=== PATIENT | female | born 1930 | race Caucasian/White ===

== ENCOUNTER 2017-08-19 11:09 | Inpatient (IN) | payer OTHER ==
[~2017-08-19] VITALS: Ht 154.9 cm; Wt 47.1 kg
[2017-08-19 11:45] LABS: HEMATOCRIT 27.4 % (36.0-46.0); HEMOGLOBIN 8.9 G/DL (11.9-15.5); MCHC 32.5 G/DL (30.0-36.0); MCV 95.5 FL (83-99); PLATELET COUNT 222 K/uL (156-360); RBC DIS.WIDTH-CV 14.1 % (11.8-14.6); RBC DIS.WIDTH-SD 48.8 % (39-53); RED BLOOD COUNT 2.87 M/uL (3.80-5.20); WHITE BLOOD COUNT 9.6 K/uL (4.1-10.2)
[2017-08-19 11:54] LABS: INTER. NORMALIZED RATIO 1.1
[2017-08-19 11:57] LABS: CHLORIDE 99 mEq/L (99-109); POTASSIUM 3.7 mEq/L (3.7-5.4); SODIUM 148 mEq/L (136-147)
[2017-08-19 11:58] LABS: GLUCOSE 136 mg/dL (70-99)
[2017-08-19 12:02] LABS: CREATININE 1.2 mg/dL (0.6-1.3); GFR ESTIMATE (CALCULATED) 45 mL/min/
[2017-08-19 12:03] LABS: UREA NITROGEN (BUN) 55 mg/dL (9-23)
[2017-08-19 12:05] LABS: CREATINE KINASE 112 IU/L (1-294); TOTAL CK 112 IU/L (1-294)
[2017-08-19 12:06] LABS: TROP-I INTERPRETATION POSITIVE
[2017-08-19 12:09] LABS: TROPONIN-I 1.59 ng/mL (0.0-0.30)
[2017-08-19 12:10] LABS: CK-MB 4.2 ng/mL (0.0-4.9); CKMB RELATIVE INDEX 3.8 (0.0-3.9)
[2017-08-19 12:23] LABS: ABS NEUTROPHIL COUNT 9.4; ANISOCYTOSIS 1+; EOSINOPHIL ABS CT 0; LYMPHOCYTES 1.7 % (15.0-45.0); MICROCYTOSIS 1+; MONOCYTES 0.9 % (0-9.0); SEG.NEUTROPHILS 77.4 % (46.0-76.0)
[2017-08-19 15:30] VITALS: BP 95/50
[2017-08-19 17:45] LABS: TROP-I INTERPRETATION POSITIVE; TROPONIN-I 2.58 ng/mL (0.0-0.30)
[2017-08-19 20:30] VITALS: BP 106/53
[2017-08-19 20:39] VITALS: BP 150/69
[2017-08-19 23:21] LABS: TROP-I INTERPRETATION POSITIVE
[2017-08-19 23:27] LABS: TROPONIN-I 1.74 ng/mL (0.0-0.30)
[2017-08-20] VITALS (12 sets, daily range): BP systolic 84–112; BP diastolic 40–55
[2017-08-20 05:12] LABS: HEMATOCRIT 23.9 % (36.0-46.0); HEMOGLOBIN 7.4 G/DL (11.9-15.5); MCH 30.3 PG (29.0-34.0); PLATELET COUNT 207 K/uL (156-360); RBC DIS.WIDTH-CV 14.2 % (11.8-14.6); RBC DIS.WIDTH-SD 51.6 % (39-53); RED BLOOD COUNT 2.44 M/uL (3.80-5.20); WHITE BLOOD COUNT 4.8 K/uL (4.1-10.2)
[2017-08-20 05:39] LABS: TROP-I INTERPRETATION POSITIVE; TROPONIN-I 2.05 ng/mL (0.0-0.30)
[2017-08-20 05:41] LABS: ALBUMIN 2.9 G/DL (3.2-4.8); ALKALINE PHOSPHATASE 52 IU/L (3-129); ALT (GPT) 11 IU/L (3-49); AST (GOT) 21 IU/L (2-34); CHLORIDE 104 MEQ/L (99-109); CREATININE 1.6 MG/DL (0.6-1.3); GFR ESTIMATE (CALCULATED) 33 mL/min/; GLUCOSE 110 mg/dL (70-99); POTASSIUM 3.7 MEQ/L (3.7-5.4); SODIUM 146 MEQ/L (136-147); TOTAL BILIRUBIN 0.4 MG/DL (0.0-1.0); TOTAL PROTEIN 4.4 G/DL (6.4-8.3); UREA NITROGEN (BUN) 59 mg/dL (9-23)
[2017-08-21] VITALS (8 sets, daily range): BP systolic 101–139; BP diastolic 49–88
[2017-08-21 05:49] LABS: HEMATOCRIT 26.8 % (36.0-46.0); HEMOGLOBIN 9.1 G/DL (11.9-15.5); PLATELET COUNT 157 K/uL (156-360); RBC DIS.WIDTH-CV 14.7 % (11.8-14.6); RBC DIS.WIDTH-SD 49.5 % (39-53); WHITE BLOOD COUNT 4.8 K/uL (4.1-10.2)
[2017-08-21 05:50] LABS: MCV 91.2 FL (83-99); RED BLOOD COUNT 2.94 M/uL (3.80-5.20)
[2017-08-21 06:04] LABS: TROP-I INTERPRETATION POSITIVE; TROPONIN-I 1.67 ng/mL (0.0-0.30)
[2017-08-21 06:23] LABS: CHLORIDE 101 MEQ/L (99-109); CREATININE 1.2 MG/DL (0.6-1.3); GFR ESTIMATE (CALCULATED) 45 mL/min/; GLUCOSE 99 mg/dL (70-99); POTASSIUM 3.3 MEQ/L (3.7-5.4); SODIUM 139 MEQ/L (136-147); UREA NITROGEN (BUN) 53 mg/dL (9-23)
[2017-08-22 04:30] VITALS: BP 104/54
[2017-08-22 05:57] LABS: BASOPHIL (%) 0.3 % (0-1); EOSINOPHIL (%) 2.1 % (0-5); EOSINOPHIL COUNT 0.1 K/uL (0-0.3); HEMATOCRIT 30.1 % (36.0-46.0); IMMATURE GRANULOCYTE (%) 0.5 % (0.0-0.7); LYMPHOCYTE COUNT 0.6 K/uL (1.0-2.8); MCH 30.4 PG (29.0-34.0); MCHC 33.2 G/DL (30.0-36.0); MCV 91.5 FL (83-99); MONOCYTE COUNT 0.4 K/uL (0-0.8); NEUTROPHIL (%) 70.1 % (45-76); NEUTROPHIL COUNT 2.7 K/uL (1.8-6.4); PLATELET COUNT 174 K/uL (156-360); RBC DIS.WIDTH-CV 14.6 % (11.8-14.6); RBC DIS.WIDTH-SD 49.5 % (39-53); RED BLOOD COUNT 3.29 M/uL (3.80-5.20); WHITE BLOOD COUNT 3.8 K/uL (4.1-10.2)
[2017-08-22 06:34] LABS: ALBUMIN 2.4 G/DL (3.2-4.8); ALKALINE PHOSPHATASE 62 IU/L (3-129); ALT (GPT) 10 IU/L (3-49); AST (GOT) 16 IU/L (2-34); CHLORIDE 104 MEQ/L (99-109); GFR ESTIMATE (CALCULATED) 56 mL/min/; GLUCOSE 101 mg/dL (70-99); POTASSIUM 3.7 MEQ/L (3.7-5.4); SODIUM 138 MEQ/L (136-147); TOTAL BILIRUBIN 0.4 MG/DL (0.0-1.0); TOTAL PROTEIN 4.4 G/DL (6.4-8.3); UREA NITROGEN (BUN) 39 mg/dL (9-23)
[2017-08-22 07:30] VITALS: BP 123/60
[2017-08-22 11:50] VITALS: BP 118/56
[2017-08-22] MEDS ORDERED: ATORVASTATIN CA40 MG PO (14:39)
[2017-08-22] MEDS ORDERED: NITROSTAT0.4 MG SL (14:39)
[2017-08-22] MEDS ORDERED: PROTONIX IV40 MG IV (14:40)
[2017-08-22] MEDS ORDERED: ZOLPIDEM TARTRAT5 MG PO (14:40)
[2017-08-22] MEDS ORDERED: ATIVAN0.5 MG PO (14:42)
[2017-08-22] MEDS ORDERED: OMEPRAZOLE40 M1 PO (17:15)
[2017-08-22 19:15] VITALS: BP 121/57
== END 2017-08-22 19:20 | DRG 281 ==
LOC: EME 11:09 → EDOF 13:57 → 4EAST 13:57 → ENRESERV 14:00 → 4EAST 15:36
PROVIDERS: Emergency Medicine; Family Medicine; Internal Medicine; Internal Medicine Cardiovascular Disease
PROC: 30233N1 Transfusion of Nonautologous Red Blood Cells into Peripheral Vein, Percutaneous Approach (ICD-10-PCS; principal; 2017-08-20)
DX: I21.4 Non-ST elevation (NSTEMI) myocardial infarction (principal); K92.0 Hematemesis; Z68.1 Body mass index [BMI] 19.9 or less, adult; F02.81 Dementia in other diseases classified elsewhere, unspecified severity, with behavioral disturbance; F05 Delirium due to known physiological condition; I95.9 Hypotension, unspecified; I12.9 Hypertensive chronic kidney disease with stage 1 through stage 4 chronic kidney disease, or unspecified chronic kidney disease; I25.110 Atherosclerotic heart disease of native coronary artery with unstable angina pectoris; J44.9 Chronic obstructive pulmonary disease, unspecified; M81.0 Age-related osteoporosis without current pathological fracture; N18.3 Chronic kidney disease, stage 3 (moderate); G30.8 Other Alzheimer's disease; Z60.2 Problems related to living alone; D64.9 Anemia, unspecified; I73.9 Peripheral vascular disease, unspecified; F41.9 Anxiety disorder, unspecified; M19.90 Unspecified osteoarthritis, unspecified site; R01.1 Cardiac murmur, unspecified; J32.9 Chronic sinusitis, unspecified; Z87.11 Personal history of peptic ulcer disease; Z87.891 Personal history of nicotine dependence; Z91.83 Wandering in diseases classified elsewhere
CPT/HCPCS: 70450; 71045; 80048; 80053; 82550; 82553; 84484; 85025; 85027; 85610; 86850; 86900; 86901; 86920; 93005; 93306; 97530 GO; 99281; 99285; A6214; C9113; J2060; J2354; J7030; P9016